=== PATIENT | female | born 1950 | race Caucasian/White ===

== ENCOUNTER 2020-03-09 13:53 | Outpatient (CLI) | payer MEDICARE ==
--- NOTE | 2020-03-09 14:36 | BD ---
EXAM: Bone densitometry using DEXA HISTORY: 70 yo female. Screening for postmenopausal osteoporosis FINDINGS: L1--bone mineral density 1.144 g/sq cm; T score 1.4 ; Z score 3.3 L2--bone mineral density 1.176 g/sq cm; T score 1.3 ; Z score 3.4 L3--bone mineral density 1.127 g/sq cm; T score 0.4 ; Z score 2.6 L4--bone mineral density 1.095 g/sq cm; T score 0.3 ; Z score 2.6 Total L1-L4--bone mineral density 1.133 g/sq cm; T score 0.8 ; Z score 2.9 Left femoral neck--bone mineral density0.692; T score -1.4 ; Z score 0.4 Total proximal left femur--bone mineral density 0.858; T score -0.7 ; Z score 0.8 The 10 year fracture risk for a major osteoporotic fracture is 9.1% and for a hip fracture is 1.3%. IMPRESSION: Osteopenia
== END 2020-03-09 13:54 | disposition home or self-care (01) ==
LOC: BICMAMMO 13:53
PROVIDERS: ATTEND Family Medicine Sports Medicine
DX: Z13.820 Encounter for screening for osteoporosis (principal); M85.89 Other specified disorders of bone density and structure, multiple sites; Z78.0 Asymptomatic menopausal state
CPT/HCPCS: 77080

== ENCOUNTER 2023-04-29 16:19 | Outpatient (CLI) | payer MEDICARE, OTHER | END 2023-04-29 16:20 | disposition home or self-care (01) | LOC: SCSRAD 16:19 | PROVIDERS: ATTEND Family Medicine Sports Medicine | DX: M79.604 Pain in right leg (principal); M16.11 Unilateral primary osteoarthritis, right hip; R14.3 Flatulence; K21.9 Gastro-esophageal reflux disease without esophagitis; I45.9 Conduction disorder, unspecified; E78.5 Hyperlipidemia, unspecified; E03.8 Other specified hypothyroidism; M85.80 Other specified disorders of bone density and structure, unspecified site | CPT/HCPCS: 80053; 80061; 82306; 84443; 85025 ==